=== PATIENT | male | born 1945 | race Caucasian/White ===

== ENCOUNTER 2017-01-25 09:56 | Emergency (ER) | payer MEDICARE, BC ==
--- NOTE | ~2017-01-25 | CR181 ---
[facility] A Service of [facility] RADIOLOGY TEXT RESULTS PATIENT: IOANA SAENZ LOCATION: [place] : 43 UNIT #: [id number] AGE: [address]: Iliana Mckeon SEX: M ORDER DR: [id number] [facility] [address] [place], [place] [address] [id number] MR#: [id number] Acc #: [id number] NAME: IOANA SAENZ : 1945 SEX: M STUDY DATE/TIME: 01/25/2017 10:31 UNIT: [place] ROOM: STUDY DESCRIPTION: CR Lumbar Spine 2 or 3 Views Attending Physician: Iliana Mckeon Pa-C Ordering Physician: Ed Casey Toribio M.D. Primary Care Physician: No Primary Care Physician MEDICAL IMAGING REPORT This report is preliminary unless electronic signature is present EXAM Lumbar spine series, 01/25/2017, 1031 hours. CLINICAL HISTORY 71-year-old man with severe low back pain radiating to right thigh for 9 days. Pain began after lifting a 60 pound bag of cement. COMPARISON None FINDINGS AP and lateral views of the lumbar spine and a coned lateral view of the lumbosacral junction were performed. There are 5 [id number] lumbar type vertebrae which are normally aligned. There is compression deformity at the superior endplate of L1 perhaps at the superior endplate of T12 of indeterminate age. These could be acute. There is severe disc height loss with endplate spurring and sclerosis at L5-S1. There is facet arthropathy in the lower lumbar spine. Question of canal stenosis is raised in the lower lumbar spine. IMPRESSION 1. There are mild compression deformities at the superior endplate of L1 and perhaps T12 of indeterminate age. These could be acute. 2. Severe disc height loss at L5-S1 with endplate sclerosis and spurring suggesting chronicity. There is facet arthropathy with lateral view raising concern for lower lumbar stenosis. Dictated by... Sakshi Mckeon M.D. THIS IS AN ELECTRONICALLY VERIFIED REPORT [facility] A Service of [facility] RADIOLOGY TEXT RESULTS PATIENT: IOANA SAENZ LOCATION: [facility] : 43 UNIT #: [id number] AGE: [address]: Iliana Mckeon SEX: M ORDER DR: Sakshi Mckeon M.D. at 01/26/2017 9:48 AM TATIANA/maricarmen TD: 01/25/2017 18:11 JOB #: [id number] MEDICAL IMAGING REPORT Page 1 of 1 COPY
[~2017-01-25 09:56] MED LIST: ORUDIS75 M1 DOB
== END 2017-01-25 11:14 | disposition home or self-care (01) ==
LOC: CED 09:56 → CFTX 09:56
DX: S39.012A Strain of muscle, fascia and tendon of lower back, initial encounter (principal); K21.9 Gastro-esophageal reflux disease without esophagitis; F17.200 Nicotine dependence, unspecified, uncomplicated; Z98.890 Other specified postprocedural states; X50.9XXA Other and unspecified overexertion or strenuous movements or postures, initial encounter; Y92.009 Unspecified place in unspecified non-institutional (private) residence as the place of occurrence of the external cause
CPT/HCPCS: 72100; 99283